=== PATIENT | male | born 1990 | race Caucasian/White ===

== ENCOUNTER 2018-12-24 15:36 | Emergency (ER) | payer OTHER ==
[2018-12-24 15:44] VITALS: BP 143/89; PULSE 87; RESP 18; TEMP 97.8
--- NOTE | 2018-12-24 16:43 | XR ---
Right wrist 4 views. History fall. Pain. Comparison none. FINDINGS: Carpal bones appear intact. I see no fracture nor dislocation. Scaphoid appears normal. Joint spaces are fairly normal. Distal radius and ulna appear intact. IMPRESSION: Negative right wrist exam.
--- NOTE | 2018-12-24 17:10 | ED ---
Upper Extremity HPI - General Chief Complaint: Extremity Injury, Upper Stated Complaint: Wrist pain Time Seen by Provider: 12/24/18 15:45 Source: patient Mode of arrival: ambulatory Limitations: no limitations - History of Present Illness Initial Comments: 28-year-old male presents today for chief complaint of right wrist pain. Patient states he had a fall about a week ago on a right outstretched wrist. He states since he has had increasing pain in the right wrist. He states that increases with range of motion denies radiation. Denies any elbow or shoulder pain. Patient denies head injury or neck/back pain after fall. Patient states it was due to ice. Patient denies any redness, numbness tingling or loss sensation, fever, chills or night sweats. Remainder review of systems negative , patient denies any recent fever, chills, shortness of breath, chest pain, back pain, abdominal pain, nausea or vomiting, numbness or tingling, dysuria or hematuria, constipation or diarrhea, headaches or visual changes, or any other complaints. Patient presented today to the emergency department due to persistent pain with concern for fracture. - Related Data Previous Rx's Medication Instructions Recorded Cyclobenzaprine [Flexeril] 10 mg PO TID #20 tab 06/17/16 Ibuprofen [Motrin] 800 mg PO Q6HR PRN #30 tab 06/17/16 Allergies Allergy/AdvReac Type Severity Reaction Status Date / Time No Known Allergies Allergy Verified 12/24/18 15:44 Review of Systems ROS Statement: Those systems with pertinent positive or pertinent negative responses have been documented in the HPI. ROS Other: All systems not noted in ROS Statement are negative. Past Medical History Past Medical History: No Reported History Additional Past Medical History / Comment(s): Chronic back pain related to wrestling in high school. Denies need for pain medication, "I don't like to take pills" History of Any Multi-Drug Resistant Organisms: None Reported Past Surgical History: No Surgical Hx Reported Past Psychological History: No Psychological Hx Reported Smoking Status: Current every day smoker Past Alcohol Use History: None Reported Past Drug Use History: Marijuana General Exam - General Exam Comments Initial Comments: General: The patient is awake and alert, in no distress, and does not appear acutely ill. Eye: +3mm pupils are equal, round and reactive to light, extra-ocular movements are intact. No nystagmus. There is normal conjunctiva bilaterally. No signs of icterus. Ears, nose, mouth and throat: There are moist mucous membranes and no oral lesions. Neck: The neck is supple, there is no tenderness or JVD. Cardiovascular: There is a regular rate and rhythm. No murmur, rub or gallop is appreciated. Respiratory: Lungs are clear to auscultation, respirations are non-labored, breath sounds are equal. No wheezes, stridor, rales, or rhonchi. Musculoskeletal: Upon inspection of the wrist bilaterally they appear equal. No soft tissue swelling or gross deformity. Patient refuses to fully range of the right wrist secondary to pain. Normal ROM, no tenderness of the left wrist and digits of the hands bilaterally. Strength 5/5 of the left wrist and digits of the right hand. Sensation intact of the upper extremities equal bilaterally. Radial pulses equal bilaterally 2+. She is able to make the okay, fingers crossed, thumbs up, finger opposition intact of hands b/l. Scaphoid tenderness of the right hand. Compartments soft and compressible. Neurological: A&O x 3. CN II-XII intact, There are no obvious motor or sensory deficits. Coordination appears grossly intact. Speech is normal. Skin: Skin is warm and dry and no rashes or lesions are noted. Psychiatric: Cooperative, appropriate mood & affect, normal judgment. Limitations: no limitations Course Vital Signs 12/24/18 15:41 Temperature 97.8 F Pulse Rate 87 Respiratory 18 Rate Blood Pressure 143/89 O2 Sat by Pulse 100 Oximetry Medical Decision Making - Medical Decision Making 28-year-old male presented for right wrist pain after fall. Scaphoid tenderness on exam. Patient neurovascularly intact. X-rays negative for fracture. At this time I do have concern for occult scaphoid fracture and patient is placed in a thumb spica splint and given orthopedic surgery follow- up. Repeat neurovascular exam no change. I discussed my concern for hidden fracture patient verbalized understanding of close follow-up with orthopedic surgery and risk of avascular necrosis. Return parameters discussed at length with patient who verbalized understanding. I did discuss the case attending provider Dr. Marcus who agreed with impression and plan. Pt discharged in stable condition appearing well. Disposition Clinical Impression: Wrist pain Disposition: HOME SELF-CARE Condition: Good Instructions (If sedation given, give patient instructions): Wrist Injury (ED) Additional Instructions: Please use medication as discussed. Please follow-up with orthopedic surgery in the next 1-2 days. Please return to emergency room if the symptoms increase or worsen or for any other concerns. Is patient prescribed a controlled substance at d/c from ED?: No Referrals: None,Stated [Primary Care Provider] - 1-2 days Kevin Lora DO [Doctor of Osteopathic Medicine] - 1-2 days Time of Disposition: 17:10
== END 2018-12-24 17:43 | disposition home or self-care (01) ==
LOC: EC 15:36
DX: M25.531 Pain in right wrist (principal); F17.200 Nicotine dependence, unspecified, uncomplicated; W19.XXXA Unspecified fall, initial encounter
CPT/HCPCS: 29125; 99283

== ENCOUNTER → 2018-12-30 | Outpatient (CLI) | payer SELFPAY ==
--- NOTE | 2019-01-02 02:03 | MR ---
MR scan of the right wrist. History pain for 2 weeks. Fell on the ice. Comparison none. FINDINGS: Multiplanar and multiecho imaging of the right wrist was performed with no contrast. FINDINGS: The carpal bones appear intact. There is no evidence for fracture. Distal radius and ulna appear inta ct. Intercarpal joint spaces are fairly normal. The flexor and extensor tendons appear intact. There is somewhat extension deformity of the lunate bone on the sagittal images. There is no evidence of a soft tissue mass. IMPRESSION: No fracture seen. Mild extension deformity of the lunate could relate to ligamentous tear or instabil ity. No fracture seen.
== END ==
LOC: RADMRIMAIN 15:45
PROVIDERS: ATTEND Orthopaedic Surgery
DX: M25.531 Pain in right wrist (principal)

== ENCOUNTER 2019-03-12 14:31 | Emergency (ER) | payer OTHER ==
--- NOTE | 2019-03-12 14:59 | ED ---
Lower Extremity Injury HPI - General Chief Complaint: Extremity Injury, Lower Stated Complaint: Foot injury Time Seen by Provider: 03/12/19 14:40 Source: patient, RN notes reviewed, old records reviewed Mode of arrival: ambulatory Limitations: no limitations - History of Present Illness Initial Comments: Patient is a 29-year-old male presents emergency department today with right foot and ankle pain. He reports having pain with ambulation for the ED denies a specific injury. Patient reports the pain seems to be extending from the ankle to the mid foot. - Related Data Previous Rx's Medication Instructions Recorded Cyclobenzaprine [Flexeril] 10 mg PO TID #20 tab 06/17/16 Ibuprofen [Motrin] 800 mg PO Q6HR PRN #30 tab 06/17/16 Ibuprofen [Motrin] 600 mg PO Q8HR PRN #30 tab 03/12/19 methylPREDNISolone Dose Pack 4 mg PO DIRECTED #21 package 03/12/19 [Medrol Dose Pack] Allergies Allergy/AdvReac Type Severity Reaction Status Date / Time No Known Allergies Allergy Verified 03/12/19 14:40 Review of Systems ROS Statement: Those systems with pertinent positive or pertinent negative responses have been documented in the HPI. ROS Other: All systems not noted in ROS Statement are negative. Past Medical History Past Medical History: No Reported History Additional Past Medical History / Comment(s): Chronic back pain related to wrestling in high school. Denies need for pain medication, "I don't like to take pills" History of Any Multi-Drug Resistant Organisms: None Reported Past Surgical History: No Surgical Hx Reported Past Psychological History: No Psychological Hx Reported Smoking Status: Current every day smoker Past Alcohol Use History: None Reported Past Drug Use History: Marijuana General Exam Limitations: no limitations General appearance: alert, in no apparent distress Head exam: Present: atraumatic, normocephalic, normal inspection Eye exam: Present: normal appearance ENT exam: Present: normal exam, mucous membranes moist Neck exam: Present: normal inspection. Absent: tenderness, meningismus, lymphadenopathy Respiratory exam: Present: normal lung sounds bilaterally. Absent: respiratory distress, wheezes, rales, rhonchi, stridor Cardiovascular Exam: Present: regular rate, normal rhythm, normal heart sounds. Absent: systolic murmur, diastolic murmur, rubs, gallop, clicks GI/Abdominal exam: Present: soft, normal bowel sounds. Absent: distended, tenderness, guarding, rebound, rigid Back exam: Present: normal inspection Neurological exam: Present: alert, oriented X3, CN II-XII intact Psychiatric exam: Present: normal affect, normal mood Skin exam: Present: warm Course Vital Signs 03/12/19 14:37 Temperature 98.5 F Pulse Rate 88 Respiratory 16 Rate Blood Pressure 144/83 O2 Sat by Pulse 97 Oximetry Disposition Clinical Impression: Plantar fasciitis Disposition: HOME SELF-CARE Condition: Good Instructions (If sedation given, give patient instructions): Plantar Fasciitis (ED) Additional Instructions: Patient advised taking medications as prescribed. Follow-up with primary care d octor and podiatry. Patient should put a water bottle in the freezer and rolled the foot on it to help with inflammation.. Return to the emergency department if any alarming signs or symptoms occur. Prescriptions: methylPREDNISolone Dose Pack [Medrol Dose Pack] 4 mg PO DIRECTED #21 package Ibuprofen [Motrin] 600 mg PO Q8HR PRN #30 tab PRN Reason: Pain Referrals: None,Stated [Primary Care Provider] - 1-2 days Eugenio Day DPM [STAFF PHYSICIAN] - 1-2 days Pancho Avalos DPM [STAFF PHYSICIAN] - 1-2 days Time of Disposition: 16:20
[2019-03-12] MEDS ORDERED: traMADol 50 MG STARTER PACK 3 TAB BTL PO STA (16:18)
[2019-03-12] MEDS ORDERED: IBUPROFEN 600 MG STARTER PACK 4 TAB BTL PO STA (16:18)
[2019-03-12 16:38] VITALS: BP 128/84; PULSE 73; RESP 18; TEMP 97
--- NOTE | 2019-03-14 02:25 | XR ---
EXAMINATION TYPE: XR foot complete RT DATE OF EXAM: 03/12/2019 COMPARISON: NONE HISTORY: Foot pain TECHNIQUE: 3 views FINDINGS: Metatarsals are intact. I see no fracture nor dislocation. Joint spaces are normal. There a re no erosions. IMPRESSION: Negative right foot exam.
== END 2019-03-12 16:39 | disposition home or self-care (01) ==
LOC: EC 14:31
DX: M72.2 Plantar fascial fibromatosis (principal); F17.200 Nicotine dependence, unspecified, uncomplicated
CPT/HCPCS: 99284

== ENCOUNTER 2019-09-01 18:59 | Emergency (ER) | payer OTHER ==
[2019-09-01 19:03] VITALS: BP 134/87; PULSE 67; RESP 18; TEMP 97.8
[2019-09-01] MEDS ORDERED: KETOROLAC 60 MG/2 ML VIAL IM STA (20:13)
--- NOTE | 2019-09-01 20:27 | XR ---
PROCEDURE: XR cervical spine comp - 5V DATE AND TIME: 09/01/2019 7:41 PM CLINICAL INDICATION: PHH; pain, bilateral arm numbness intermittently TECHNIQUE: Department protocol COMPARISON: 06/17/2016 FINDINGS: There is no fracture or malalignment. No focal skeletal findings. The soft tissues are unre markable. IMPRESSION: NO ACUTE PROCESS.
--- NOTE | 2019-09-01 20:37 | ED ---
Neck Injury/Pain HPI - General Chief Complaint: Neck Pain/Injury Stated Complaint: neck pain Time Seen by Provider: 09/01/19 19:13 Mode of arrival: ambulatory Limitations: no limitations - History of Present Illness Initial Comments: Patient is a 29-year-old male presenting to the emergency Department with complaints of chronic neck pain 2 months. Patient states he's been having intermittent bilateral upper neck pain as well as upper trapezius pain. Patient denies any injuries or falls to the area. Patient denies any previous surgeries to his neck. Patient states he is having intermittent numbness into both hands. Patient is decided to come in today because the pain and stiffness has been increasing over the last few days. Patient has not tried to take anything for his discomfort. Patient states he did try heat packs to the area which he thought made the symptoms worse. Patient denies fever, chills, nausea, vomiting. Patient has no other complaints at this time. Upon arrival to ER, vital signs are stable. - Related Data Previous Rx's Medication Instructions Recorded Ibuprofen [Motrin] 800 mg PO Q6HR PRN #30 tab 06/17/16 Cyclobenzaprine [Flexeril] 5 mg PO BID #15 tablet 09/01/19 methylPREDNISolone [Medrol Dose 4 mg PO DIRECTED #1 pack 09/01/19 Pack] Allergies Allergy/AdvReac Type Severity Reaction Status Date / Time No Known Allergies Allergy Verified 09/01/19 19:03 Review of Systems ROS Statement: Those systems with pertinent positive or pertinent negative responses have been documented in the HPI. ROS Other: All systems not noted in ROS Statement are negative. Past Medical History Past Medical History: No Reported History Additional Past Medical History / Comment(s): Chronic back pain related to wrestling in high school. Denies need for pain medication, "I don't like to take pills" History of Any Multi-Drug Resistant Organisms: None Reported Past Surgical History: No Surgical Hx Reported Past Psychological History: No Psychological Hx Reported Smoking Status: Current every day smoker Past Alcohol Use History: None Reported Past Drug Use History: None Reported General Exam - General Exam Comments Initial Comments: GENERAL: Well-appearing, well-nourished and in no acute distress. HEAD: Atraumatic, normocephalic. EYES: Pupils equal round and reactive to light, extraocular movements intact, sclera anicteric, conjunctiva are normal. ENT: TMs normal, nares patent, oropharynx clear without exudates. Moist mucous membranes. NECK: Slightly decreased range of motion in all directions secondary to pain and stiffness. Pain with palpation of the bilateral upper traps as well as cervical paraspinals. Supple without lymphadenopathy or JVD. LUNGS: Breath sounds clear to auscultation bilaterally and equal. No wheezes rales or rhonchi. HEART: Regular rate and rhythm without murmurs, rubs or gallops. ABDOMEN: Soft, nontender, normoactive bowel sounds. No masses appreciated. EXTREMITIES: Patient has full range of motion of bilateral shoulders. Strength is 5 out of 5 bilateral upper extremities. Sensation is equal and bilateral upper extremities. No pitting or edema. No clubbing or cyanosis. NEUROLOGICAL: Cranial nerves II through XII grossly intact. Normal speech, normal gait. PSYCH: Normal mood, normal affect. SKIN: Warm, Dry, normal turgor, no rashes or lesions noted. Limitations: no limitations Course Vital Signs 09/01/19 09/01/19 19:01 20:41 Temperature 97.8 F 97.8 F Pulse Rate 67 67 Respiratory 18 18 Rate Blood Pressure 134/87 134/87 O2 Sat by Pulse 99 99 Oximetry Medical Decision Making - Medical Decision Making Patient is a 29-year-old male presenting with chronic neck pain 2 months. On exam patient has tenderness in the cervical paraspinals as well as bilateral upper traps. X-rays again no acute fractures dislocations. Patient was given Toradol injection for pain today. Patient is also sent home with a short course of steroids as well as Flexeril. Patient will continue to take Tylenol at home as needed for pain. Patient will follow up with his orthopedic if symptoms persist. Patient is stable for discharge at this time and he is in agreement with this plan of care. Return parameters were discussed with the patient and he verbalized understanding. Case discussed with Dr. Sullivan. Disposition Clinical Impression: Cervical radiculopathy Disposition: HOME SELF-CARE Condition: Stable Instructions (If sedation given, give patient instructions): Cervical Radiculopathy (ED) Additional Instructions: Please return to the Emergency Department if symptoms worsen or any other concerns. Trial of muscle relaxer and steroids. Take Tylenol as needed for pain. Follow up with orthopedics if symptoms do not improve. Prescriptions: Cyclobenzaprine [Flexeril] 5 mg PO BID #15 tablet methylPREDNISolone [Medrol Dose Pack] 4 mg PO DIRECTED #1 pack Is patient prescribed a controlled substance at d/c from ED?: No Referrals: None,Stated [Primary Care Provider] - 1-2 days
[2019-09-01] MEDS ORDERED: CYCLOBENZAPRINE 5 MG TAB PO STA (20:44)
== END 2019-09-01 20:50 | disposition home or self-care (01) ==
LOC: EC 18:59
DX: M54.12 Radiculopathy, cervical region (principal); F17.200 Nicotine dependence, unspecified, uncomplicated
CPT/HCPCS: 72050; 99283; 96372; J1885

== ENCOUNTER → 2019-09-26 | Outpatient (CLI) | payer OTHER ==
--- NOTE | 2019-09-26 21:53 | MR ---
MRI CERVICAL SPINE: CLINICAL HISTORY: M 52.2 cervicalgia per order. TECHNIQUE: Multiplanar, multisequence imaging of the cervical spine is performed without IV contrast. COMPARISON: X-ray cervical spine September 01, 2019. FINDINGS: Sagittal images of the cervical spine show the craniocervical junction to appear within nor mal limits. The cervical and upper thoracic spinal cord is normal in course, caliber, and signal. V ertebral alignment is anatomic. The vertebral body and intravertebral disk heights are normal. Poste rior disc herniations are present C5-C6 and C6-C7 levels on sagittal images. The bone marrow signal intensity is within normal limits. Axial images at C2-C3 level shows small left foraminal disc protrusion causing asymmetric mild left-s ided neural foraminal narrowing. Axial images at C3-C4 and C4-C5 levels are within normal limits. Axial images at C5-C6 level show focal left paracentral disc protrusion facing anterolaterally thecal sac on axial image 25 on background of broad-based posterior disc protrusion causing [id number] e bilateral neural foraminal narrowing. Axial images at C6-C7 levels with broad-based central disc protrusion effacing the anterior thecal sa c of the ventral surface of spinal cord and causing moderate to severe bilateral neural foraminal sheryl rowing on axial image 18. Axial images at C7-T1 level are within normal limits. 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
== END | disposition home or self-care (01) ==
LOC: RADMRIMAIN 15:53
PROVIDERS: ATTEND Nurse Practitioner Adult Health
DX: M47.812 Spondylosis without myelopathy or radiculopathy, cervical region (principal)
CPT/HCPCS: 72141

== ENCOUNTER → 2019-10-04 | Outpatient (CLI) | payer OTHER ==
[2019-10-04 11:29] VITALS: BP 132/80; PULSE 105; RESP 16
--- NOTE | 2019-10-06 10:30 | P.PAINCN ---
History of Present Illness - Reason for Consult Consult date: 10/04/19 - History of Present Illness This is a 29-year-old patient referred by Dr. Villanueva with a chief complaint of chronic pain in bilateral neck, left greater than right, which has been present for about 6 months, with radiation to bilateral upper extremities. Pain is rated as 8-9/10, constant. He has had by mouth steroids, Tylenol 3 and Robaxin, methocarbamol from PCP, which has helped somewhat. Patient denies adverse drug effects from medications. He states that when he sneezes, he feels jolts down his bilateral arms. He states that he can hardly get out of bed. He has 9 kids at home and is unable to help care for them. His work involves laying carpet and tile. He also has a secondary pain complaint in his right wrist and underwent a cortisone shot in February 2019 which helped for about a week. He does endorse numbness and tingling in bilateral hands, nondermatomal, as well as associated subjective weakness in both hands. Patient also denies new-onset weakness, bowel/bladder incontinence, or any other signs or symptoms of cauda equina syndrome. There are no signs of acute intoxication, and no indications of medication diversion or overuse. Patient HAS NOT had surgery. Patient HAS NOT had injections previously. Patient HAS NOT had physical therapy recently. In addition to above, 13-point review of systems is also negative for chest pain, changes in vision, changes in hearing, new onset weakness, abdominal pain, diarrhea, extreme fatigue, malaise, fever, skin changes, homicidal or suicidal ideation, or bowel or bladder incontinence. Review of systems is notable for occasional night sweats and pain related shortness of breath. Past Medical History Past Medical History: GI Bleed Additional Past Medical History / Comment(s): Chronic back pain related to wrestling in high school. History of Any Multi-Drug Resistant Organisms: None Reported Past Surgical History: No Surgical Hx Reported Additional Past Surgical History / Comment(s): CORTISONE SHOT IN WRIST Past Anesthesia/Blood Transfusion Reactions: No Reported Reaction Additional Past Alcohol Use History / Comment(s): SMOKING 1 PPD FOR PAST 10 YEARS Past Drug Use History: Marijuana Additional Drug Use History / Comment(s): USES MARIJUANA DAILY Medications and Allergies Home Medications Medication Instructions Recorded Confirmed Type Acetaminophen-Codeine 300-30mg 1 tab PO Q6H PRN 09/20/19 10/04/19 History [Tylenol w/codeine #3] Methocarbamol [Robaxin] 750 mg PO QID PRN 09/20/19 10/04/19 History Omeprazole [PriLOSEC] 40 mg PO DAILY 09/20/19 10/04/19 History Allergies Allergy/AdvReac Type Severity Reaction Status Date / Time No Known Allergies Allergy Verified 10/04/19 11:16 Physical Exam Physical exam: Vital Signs: Pulse 106, saturations 98% on room air, blood pressure 132/80 GENERAL: Well appearing, in no acute distress PSYCH: Mood and affect is appropriate. Awake, alert, and oriented SKIN: Skin color, texture, turgor normal, no rashes or lesions HEENT: Normocephalic, atraumatic. EOM intact CV: No pedal edema RESP: Respirations are unlabored, no audible wheezing GI: Abdomen non-distended MUSCULOSKELETAL: Bilateral upper extremity strength is normal and symmetric. No atrophy or tone abnormalities are noted. Neck: Tenderness to palpation over the cervical paraspinous muscles bilaterally, left greater than right. Spurling negative, Axial Loading Test negative, Mccauley's sign negative. Range of motion is pain limited.. No obvious deformity or signs of trauma. Normal cervical lordotic curve Extremities: Peripheral joint ROM is full and pain free without obvious instability or laxity in all four extremities. No edema or skin discolorations noted. Gait: Gait is normal NEUR: Bilateral upper extremity coordination and muscle stretch reflexes are physiologic and symmetric. No loss of sensation is noted. Cranial nerves are grossly intact. Results Results: Imaging: MRI cervical spine done at [facility] on 09/26/2019 shows multilevel degenerative changes in the cervical spine most prominent at C5-C6 and C6-7. At C5-C6 there is a broad based posterior disc perfusion causing mild to moderate bilateral neuroforaminal narrowing. At C6/7 there is a broad-based central disc protrusion causing moderate to severe bilateral neuroforaminal narrowing. MRI right wrist shows no obvious bony abnormality. Some ligamentous abnormalities noted. Assessment and Plan Assessment: 1. Cervical stenosis 2. Cervical degenerative disc disease 3. Right wrist painlikely due to ligamentous injury 4. Nicotine dependence Plan: 1. Explanation: Diagnoses, prognoses, and multiple treatment options including but not limited to physical therapy, interventional therapies, adjuvant medical therapies and surgery were discussed with the patient and all questions were answered to the patient's satisfaction. 2. Opioid agreement: None 3. Counseling: The patient was counseled for 3 minutes on SMOKING CESSATION, he smokes 2-3 packs of cigarettes per day. Specifically, the patient was instructed regarding the importance of smoking cessation in the context of both chronic pain and overall health. 4. Procedures: We will schedule left paramedian C7-T1 cervical epidural steroid injection 5. Consultations: None, in the future if no benefit from interventional pain management, would consider sending him to a surgeon for evaluation. Patient was also instructed to discuss with PCP his right wrist pain can consider referral for surgical evaluation 6. Investigations: None, MRI cervical spine reviewed 7. Medications: Managed by primary care physician. No changes 8. Disposition: For above-mentioned procedure PQRS Measure Charge Sheet Measure #130: Documentation of Current Meds in Medical Chart: Patient's medications documented in chart Measure #226: Tobacco Use: Screen & Cessation Intervention: Pt screened for tobacco use AND intervention given Measure #111: Pneumonia Vaccination: Pneumococcal vaccine NOT administered or previously given Measure #47: Advance Care Plan: Advance care planning discussed & documented, pt chose/unable to give Measure #412: Opioid Treatment Agreement: No documentation of signed opioid treatment agreement Measure #317: Preventitive Care & Scrn High Bld Press & F/U: Normal blood pressure, f/u not required Measure #128: Body Mass Index (BMI) Screening & Follow-up: BMI documented within normal parameters Measure #131: Pain Assessment & Follow-up: Pain positive & plan documented, Follow-up scheduled Measure #431: Unhealthy Alcohol Use Preventative Care & Scrn: Patient not identified as an unhealthy alcohol user PQRS Narrative: Smoking Status Current every day smoker Hx Alcohol Use (MH) No Home Medications: Ambulatory Orders Acetaminophen-Codeine 300-30mg [Tylenol w/codeine #3] 1 tab PO Q6H PRN 09/20/19 Methocarbamol [Robaxin] 750 mg PO QID PRN 09/20/19 Omeprazole [PriLOSEC] 40 mg PO DAILY 09/20/19
== END | disposition home or self-care (01) ==
LOC: PNWHC3 11:07
PROVIDERS: ATTEND Anesthesiology
DX: M48.02 Spinal stenosis, cervical region (principal); M50.30 Other cervical disc degeneration, unspecified cervical region; M25.531 Pain in right wrist; G89.29 Other chronic pain; F17.200 Nicotine dependence, unspecified, uncomplicated; Z79.891 Long term (current) use of opiate analgesic; Z79.899 Other long term (current) drug therapy
CPT/HCPCS: 99211

== ENCOUNTER 2020-06-05 07:06 | Emergency (ER) | payer OTHER ==
[2020-06-05 07:11] VITALS: TEMP 98.1
--- NOTE | 2020-06-05 08:07 | XR ---
Right wrist HISTORY: Swelling and pain 4 views of the right wrist correlated prior exam 12/24/2018 Bone mineralization, joint spaces and alignment are maintained. No fracture or dislocation. IMPRESSION: No acute abnormality.
--- NOTE | 2020-06-05 08:19 | ED ---
General Adult HPI - General Chief complaint: Extremity Injury, Upper Stated complaint: Right arm pain Time Seen by Provider: 06/05/20 07:17 Source: patient, RN notes reviewed Mode of arrival: ambulatory Limitations: no limitations - History of Present Illness Initial comments: 30-year-old male with a past medical history of GI bleed presents to the [facility] room for right wrist pain. Patient is right-hand dominant. Patient was painting a ceiling yesterday when he noticed pain and swelling in the right wrist. Patient states it is painful to move the right wrist. States he has had problems with the right wrist before and needed injections. Patient denies any fevers or chills. Denies any spreading or streaking redness from the wrist. Patient denies any other injuries.Patient has no other complaints at this time including shortness of breath, chest pain, abdominal pain, nausea or vomiting, headache, or visual changes. - Related Data Home Medications Medication Instructions Recorded Confirmed Omeprazole [PriLOSEC] 40 mg PO DAILY 09/20/19 10/17/19 methocarbamoL [Robaxin] 750 mg PO QID PRN 09/20/19 10/17/19 HYDROcodone/APAP 5-325MG [[place] 1 tab PO TID PRN 10/17/19 10/17/19 5-325] Allergies Allergy/AdvReac Type Severity Reaction Status Date / Time No Known Allergies Allergy Verified 06/05/20 07:11 Review of Systems ROS Statement: Those systems with pertinent positive or pertinent negative responses have been documented in the HPI. ROS Other: All systems not noted in ROS Statement are negative. Past Medical History Past Medical History: GI Bleed Additional Past Medical History / Comment(s): Chronic back pain related to wrestling in high school. History of Any Multi-Drug Resistant Organisms: None Reported Past Surgical History: No Surgical Hx Reported Additional Past Surgical History / Comment(s): CORTISONE SHOT IN WRIST, "neck surgery" hardware was implanted Past Anesthesia/Blood Transfusion Reactions: No Reported Reaction Past Psychological History: No Psychological Hx Reported Smoking Status: Current every day smoker Past Alcohol Use History: None Reported Past Drug Use History: None Reported - Past Family History Mother Family Medical History: No Reported History General Exam Limitations: no limitations General appearance: alert, in no apparent distress Head exam: Present: atraumatic, normocephalic, normal inspection Eye exam: Present: normal appearance, PERRL, EOMI. Absent: scleral icterus, conjunctival injection, periorbital swelling ENT exam: Present: normal exam, mucous membranes moist Neck exam: Present: normal inspection, full ROM. Absent: tenderness, meningismus, lymphadenopathy Respiratory exam: Present: normal lung sounds bilaterally. Absent: respiratory distress, wheezes, rales, rhonchi, stridor Cardiovascular Exam: Present: regular rate, normal rhythm, normal heart sounds. Absent: systolic murmur, diastolic murmur, rubs, gallop, clicks Extremities exam: Present: tenderness (Tenderness noted to the right distal forearm, radial aspect.), normal capillary refill (Capillary refill less than 2 seconds, radial pulse 2+ in the right upper extremity.), other (Sensation intact right approximate. Positive Maximiliano test). Absent: full ROM (Patient has limited range of motion of the right wrist secondary to pain. He has full extension but limited flexion.), pedal edema, joint swelling (Minimal edema present of the right wrist.), calf tenderness Neurological exam: Present: alert Course Vital Signs 06/05/20 07:08 Temperature 98.1 F Pulse Rate 93 Respiratory 17 Rate Blood Pressure 147/82 O2 Sat by Pulse 98 Oximetry Medical Decision Making - Medical Decision Making Vitals are stable. Afebrile. There is minimal edema without erythema of the right wrist. No signs of infection. Patient's pain started after he was painting a ceiling with his right hand. Patient has tenderness to the distal radial aspect of the right wrist. Positive Maximiliano test. X-ray is negative. I suspect tendinitis. Patient was wrapped with an Harvey wrap. Started on anti-inflammatories. Will follow up with orthopedics. Will return here for any worsening symptoms. Disposition Clinical Impression: Wrist pain Disposition: HOME SELF-CARE Condition: Good Instructions (If sedation given, give patient instructions): Wrist Injury (ED) Additional Instructions: Please take Motrin and Tylenol for pain. Please rest ice and elevate the right wrist. Use Harvey wrap as needed. Follow-up with orthopedics. Return to the emergency room for any worsening symptoms. Is patient prescribed a controlled substance at d/c from ED?: No Referrals: Bob Villanueva MD [Primary Care Provider] - 1-2 days Andrea Mancilla MD [STAFF PHYSICIAN] - 1-2 days Time of Disposition: 08:18
[2020-06-05 08:29] VITALS: BP 135/80; PULSE 77; RESP 18
== END 2020-06-05 08:27 | disposition home or self-care (01) ==
LOC: EC 07:06
DX: M25.531 Pain in right wrist (principal); R60.0 Localized edema; F17.200 Nicotine dependence, unspecified, uncomplicated; X50.1XXA Overexertion from prolonged static or awkward postures, initial encounter
CPT/HCPCS: 99283

== ENCOUNTER → 2020-06-26 | Outpatient (CLI) | payer OTHER ==
--- NOTE | 2020-06-26 13:49 | CT ---
EXAMINATION TYPE: CT cervical spine wo con DATE OF EXAM: 06/26/2020 COMPARISON: MRI cervical spine September 26, 2019. Cervical spine x-ray September 01, 2019 HISTORY: Neck pain and swelling on the Lt since fusion 6 months ago. Cervical disc disorder C5-C6 wit h myelopathy, cervical disc disorder C6-C7 with myelopathy, cervical spinal stenosis, status post cer vical spine fusion, and traumatic spondylopathy per prior order. CT DLP: 754.9 mGycm. Automated Exposure Control for Dose Reduction was Utilized. TECHNIQUE: CT scan of the cervical spine is obtained without contrast, axial images are obtained, sa gittal and coronal reformatted images are also reviewed. FINDINGS: Cervical spine is visualized in its entirety from C1 through upper thoracic levels, demonst rates interval surgical change with no metallic disc material and anterior fusion plate at C5-C7 leve ls. Slight grade 1 retrolisthesis C5 on C6 is now present. Vertebral body heights and disc space heig hts of multiple surgical levels are satisfactory. Prevertebral soft tissue appears within normal jensen its. The C1-C2 articulation is within normal limits on the coronal images. Review of axial images shows C2-C3 through the C4-C5 levels to remain within normal limits. Axial images at C5-C6 and C6-C7 levels showed new postsurgical changes. Mild to moderate bilateral ne ural foraminal narrowing C6-C7 level remains present. Axial images at C7-T1 level remain within normal limits. Visualized portion of thyroid gland unremark able. Visualized lung apices show no pneumothorax. IMPRESSION: Interval treatment of disc herniation C5-C6 and C6-C7 level. Slight grade 1 retrolisthesi s C5 on C6. Vertebral body heights and disc space heights above and below surgical levels remain sati sfactory.
== END | disposition home or self-care (01) ==
LOC: RADCTMAIN 13:06
PROVIDERS: ATTEND Neurological Surgery
DX: M50.022 Cervical disc disorder at C5-C6 level with myelopathy (principal); M43.12 Spondylolisthesis, cervical region
CPT/HCPCS: 72125

== ENCOUNTER 2021-01-09 03:52 | Emergency (ER) | payer OTHER ==
[2021-01-09 03:58] VITALS: BP 133/77; RESP 20; TEMP 98.3
[2021-01-09] MEDS ORDERED: IBUPROFEN 400 MG TAB PO STA (04:23)
[2021-01-09] MEDS ORDERED: HYDROcodone/APAP 5-325MG 1 EACH TAB PO STA (04:23)
--- NOTE | 2021-01-09 05:23 | CT ---
EXAM: CT Cervical Spine Without Intravenous Contrast CLINICAL HISTORY: ITS.REASON CT Reason: fall injury TECHNIQUE: Axial computed tomography images of the cervical spine without intravenous contrast. CTDI is 14.027 mGy and DLP is 395.2 mGy-cm. This CT exam was performed using one or more of the following dose reduction techniques: automated exposure control, adjustment of the mA and/or kV according to patient size, and/or use of iterative reconstruction technique. COMPARISON: 06/26/2020 FINDINGS: Vertebrae: The vertebral bodies are intact without acute osseous traumatic injury. No anterolisthesis or retrolisthesis is identified. The facet joints are well aligned without subluxation or dislocation. The spinous processes are intact. Discs/spinal canal/neural foramina: Anterior fusion from C5-C7 with interbody cage placement is stable in appearance from the previous exam. Mild posterior disc marginal osteophytes are similar to the previous exam. No spinal canal stenosis. Soft tissues: Unremarkable. IMPRESSION: No acute osseous traumatic injury or significant abnormal alignment involving the cervical spine. Stable postsurgical changes. No significant alteration from the previous examination.
--- NOTE | 2021-01-09 05:31 | ED ---
Neck Injury/Pain HPI - General Chief Complaint: Neck Pain/Injury Stated Complaint: neck/shoulder pain Time Seen by Provider: 01/09/21 04:07 Mode of arrival: ambulatory Limitations: no limitations - History of Present Illness Initial Comments: This patient is a 30-year-old man who presents to be evaluated for neck pain following a fall. The patient states that he did have lower cervical fusion in 2019 at [facility], and that his neck has "not been right" since the surgery. He states that he does have chronic intermittent pain. The patient was carrying a child earlier in the evening, slipped and fell with right arm outstretched. Since that time, the patient has noted neck pain that does radiate towards his left arm. He denies weakness. No lower back pain or rad iation to the legs. MD Complaint: neck pain, neck injury -: hour(s) Place: street/outdoors Radiation: left shoulder, left upper extremity Severity: severe Quality: burning, sharp Consistency: constant Improves With: other (Position) Worsens With: movement of extremity Context: fall Associated Symptoms: tingling Treatments Prior to Arrival: Acetaminophen - Related Data Home Medications Medication Instructions Recorded Confirmed Omeprazole [PriLOSEC] 40 mg PO DAILY 09/20/19 06/05/20 methocarbamoL [Robaxin] 750 mg PO Q8H PRN 09/20/19 06/05/20 HYDROcodone/APAP 5-325MG [[place] 1 tab PO Q6H PRN 10/17/19 06/05/20 5-325] Previous Rx's Medication Instructions Recorded Methocarbamol [Robaxin-750] 750 mg PO TID PRN #30 tablet 01/09/21 predniSONE [Deltasone] 20 mg PO BID #8 tab 01/09/21 Allergies Allergy/AdvReac Type Severity Reaction Status Date / Time No Known Allergies Allergy Verified 01/09/21 03:58 Review of Systems ROS Statement: Those systems with pertinent positive or pertinent negative responses have been documented in the HPI. ROS Other: All systems not noted in ROS Statement are negative. Constitutional: Denies: fever, chills, weakness Eyes: Denies: vision change Respiratory: Denies: cough, dyspnea Cardiovascular: Denies: chest pain, syncope Gastrointestinal: Denies: abdominal pain Skin: Denies: rash, lesions Neurological: Reports: paresthesias. Denies: headache, weakness, numbness Past Medical History Past Medical History: GI Bleed Additional Past Medical History / Comment(s): Chronic back pain related to wrestling in high school. History of Any Multi-Drug Resistant Organisms: None Reported Past Surgical History: No Surgical Hx Reported Additional Past Surgical History / Comment(s): CORTISONE SHOT IN WRIST, "neck surgery" hardware was implanted Past Anesthesia/Blood Transfusion Reactions: No Reported Reaction Past Psychological History: No Psychological Hx Reported Smoking Status: Current every day smoker Past Alcohol Use History: None Reported Past Drug Use History: None Reported - Past Family History Mother Family Medical History: No Reported History General Exam Limitations: no limitations General appearance: alert, in no apparent distress Head exam: Present: atraumatic, normocephalic Eye exam: Present: normal appearance. Absent: scleral icterus, conjunctival injection Neck exam: Present: normal inspection, tenderness, full ROM Respiratory exam: Present: normal lung sounds bilaterally. Absent: respiratory distress, wheezes, rales, rhonchi, stridor, chest wall tenderness Cardiovascular Exam: Present: regular rate, normal rhythm, normal heart sounds. Absent: systolic murmur, diastolic murmur, rubs, gallop GI/Abdominal exam: Present: soft. Absent: tenderness Extremities exam: Present: normal inspection, normal capillary refill. Absent: pedal edema, calf tenderness Back exam: Present: paraspinal tenderness, vertebral tenderness (Cervical) Neurological exam: Present: alert. Absent: motor sensory deficit Skin exam: Present: warm, dry, intact, normal color. Absent: rash Course Vital Signs 01/09/21 01/09/21 03:53 05:45 Temperature 98.3 F 98.3 F Pulse Rate 122 H 91 Respiratory 20 20 Rate Blood Pressure 133/77 133/77 O2 Sat by Pulse 99 98 Oximetry Medical Decision Making - Medical Decision Making Patient is a 30-year-old man with history of chronic neck pain who had a little fall with exacerbation of his chronic radicular neck pain. The study does not reveal any new injury. He has had decent relief of symptoms with the medication here. We'll prescribe further course medication and discussed appropriate further care and follow-up. He did request referral information for the local spine physician and this is provided Disposition Clinical Impression: Cervical radiculopathy Disposition: HOME SELF-CARE Condition: Fair Instructions (If sedation given, give patient instructions): Cervical Strain (ED), Cervical Radiculopathy (ED) Prescriptions: predniSONE [Deltasone] 20 mg PO BID #8 tab Methocarbamol [Robaxin-750] 750 mg PO TID PRN #30 tablet PRN Reason: pain Is patient prescribed a controlled substance at d/c from ED?: No When asked, does pt state using other controlled substances?: No Referrals: None,Stated [Primary Care Provider] - 1-2 days Ryan Carranza DO [Doctor of Osteopathic Medicine] - 1-2 days
[2021-01-09] MEDS ORDERED: predniSONE 20 MG TAB PO STA (05:32)
[2021-01-09 05:46] VITALS: PULSE 91
== END 2021-01-09 05:50 | disposition home or self-care (01) ==
LOC: EC 03:52
DX: G89.11 Acute pain due to trauma (principal); M54.2 Cervicalgia; M54.12 Radiculopathy, cervical region; F17.200 Nicotine dependence, unspecified, uncomplicated; Z79.52 Long term (current) use of systemic steroids; W19.XXXA Unspecified fall, initial encounter
CPT/HCPCS: 72125; 99283; J7512

== ENCOUNTER 2021-07-14 18:13 | Emergency (ER) | payer OTHER ==
[2021-07-14 18:27] VITALS: BP 130/82; PULSE 101; RESP 20; TEMP 98.6
[2021-07-14] MEDS ORDERED: HYDROcodone/APAP 5-325MG 1 EACH TAB PO STA (18:50)
[2021-07-14] MEDS ORDERED: KETOROLAC 15 MG/ML 1 ML VIAL IM STA (18:50)
--- NOTE | 2021-07-14 20:34 | CT ---
EXAMINATION TYPE: CT Cerv Thoracic spine wo con DATE OF EXAM: 07/14/2021 COMPARISON: CT cervical spine 01/09/2021 HISTORY: TRAUMA, PAIN CT DLP: 1834.7 mGycm Automated exposure control for dose reduction was used. TECHNIQUE: Multiple contiguous axial CT images were performed of the cervical and thoracic spines wit hout the administration of intravenous contrast. 2-D coronal and sagittal reformats were obtained. FINDINGS: Cervical Spine: ACDF changes C5-C7 with intact hardware. Remaining cervical vertebral body heights and alignment are maintained. No acute fracture or traumatic subluxation. Odontoid process appears intact. The atlantoo ccipital joints appear normal. No prevertebral soft tissue swelling. Paraspinal soft tissues appear u nremarkable. Thoracic spine: Thoracic vertebral body heights and alignment are maintained. No acute fracture or traumatic subluxat ion. Mild multilevel degenerative changes with osteophyte formation, disc height loss, vacuum disc ph enomena, and multilevel Schmorl's node formation. Prespinal soft tissues appear unremarkable. Visuali zed lungs appear clear. IMPRESSION: 1. ACDF changes c5-c7 with intact hardware. 2. No acute fracture or traumatic subluxation of the cervical or thoracic spines.
[2021-07-14] MEDS ORDERED: MORPHINE ORAL SOLN 10 MG/5 ML CUP PO STA (21:20)
--- NOTE | 2021-07-14 22:21 | XR ---
EXAMINATION TYPE: XR chest 2V DATE OF EXAM: 07/14/2021 COMPARISON: 08/01/2010 HISTORY: Trauma. Chest pain TECHNIQUE: FINDINGS: Heart and mediastinum are normal. Lungs are clear. Diaphragm is normal. Bony thorax appears normal. IMPRESSION: Normal chest. Normal heart.
--- NOTE | 2021-07-14 22:22 | XR ---
EXAMINATION TYPE: XR clavicle LT DATE OF EXAM: 07/14/2021 COMPARISON: NONE HISTORY: Pain TECHNIQUE: 2 views FINDINGS: I see no fracture nor dislocation. AC joint appears intact. There is previous cervical spin e surgery. Glenohumeral joint is intact. IMPRESSION: Negative left clavicle exam.
--- NOTE | 2021-07-14 22:23 | XR ---
EXAMINATION TYPE: XR humerus LT DATE OF EXAM: 07/14/2021 COMPARISON: NONE HISTORY: Pain TECHNIQUE: 2 view FINDINGS: I see no fracture nor dislocation. Joint spaces are normal. Shoulder joint and elbow joint appear intact. IMPRESSION: Negative left humerus exam.
--- NOTE | 2021-07-14 22:23 | XR ---
EXAMINATION TYPE: XR shoulder complete LT DATE OF EXAM: 07/14/2021 COMPARISON: NONE HISTORY: Pain TECHNIQUE: 3 views FINDINGS: There is no sign of fracture nor dislocation. Joint spaces are normal. There are no patholo gic calcifications. IMPRESSION: Negative left shoulder exam.
--- NOTE | 2021-07-14 22:24 | XR ---
EXAMINATION TYPE: XR elbow complete LT DATE OF EXAM: 07/14/2021 COMPARISON: NONE HISTORY: Pain TECHNIQUE: 3 views FINDINGS: Elbow joint spaces are normal. I see no fracture nor dislocation. There is no sign of joint effusion. IMPRESSION: Negative left elbow exam.
--- NOTE | 2021-07-14 22:25 | XR ---
EXAMINATION TYPE: XR wrist complete RT DATE OF EXAM: 07/14/2021 COMPARISON: NONE HISTORY: Pain TECHNIQUE: 4 views FINDINGS: Carpal bones are intact. Joint spaces are normal. I see no fracture nor dislocation. Scapho id is intact. IMPRESSION: Negative right wrist exam.
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
== END 2021-07-14 23:06 | disposition home or self-care (01) ==
LOC: EC 18:13
DX: M54.2 Cervicalgia (principal); M79.10 Myalgia, unspecified site; G89.29 Other chronic pain; F17.200 Nicotine dependence, unspecified, uncomplicated; Z98.1 Arthrodesis status; F12.90 Cannabis use, unspecified, uncomplicated
CPT/HCPCS: 99284; 96372; 73030; 73000; 73060; 73080; 73110; 71046; 72128; 72125; J1885